=== PATIENT | male | born 1970 | race Caucasian/White ===

== ENCOUNTER 2016-09-15 14:52 | Emergency (ER) | payer OTHER ==
[~2016-09-15] VITALS: Ht 188 cm; Wt 96.0 kg
[2016-09-15] MEDS ORDERED: BACTRIM,SEPT1 TABLET PO (15:27)
[2016-09-15] MEDS ORDERED: LISINOPRIL20 MG PO (15:32)
[2016-09-15] MEDS ORDERED: OMEPRAZOLE40 M1 PO (15:32)
[2016-09-15 15:42] VITALS: BP 00/00
== END 2016-09-15 15:49 | disposition home or self-care (01) ==
LOC: EME 14:52
DX: S81.801A Unspecified open wound, right lower leg, initial encounter (principal); L03.115 Cellulitis of right lower limb; W26.8XXA Contact with other sharp object(s), not elsewhere classified, initial encounter; F17.200 Nicotine dependence, unspecified, uncomplicated
CPT/HCPCS: 99281; 99284

== ENCOUNTER 2017-01-30 17:02 | Emergency (ER) | payer OTHER ==
[~2017-01-30] VITALS: Ht 188 cm; Wt 107.0 kg
[~2017-01-30 17:02] MED LIST: BACTRIM,SEPT1 TABLET PO; LISINOPRIL20 MG PO; OMEPRAZOLE40 M1 PO
[2017-01-30] MEDS ORDERED: SKELAXIN800 MG PO (20:49)
[2017-01-30] MEDS ORDERED: NAPROXEN500 MG PO (20:49)
[2017-01-30 21:40] VITALS: BP 142/84
== END 2017-01-30 21:43 | disposition home or self-care (01) ==
LOC: EME 17:02 → RME 17:02
DX: M25.511 Pain in right shoulder (principal); I10 Essential (primary) hypertension; F17.200 Nicotine dependence, unspecified, uncomplicated
CPT/HCPCS: 73030; 93005; 99281; 99283

== ENCOUNTER → 2018-01-30 | Outpatient (CLI) | payer OTHER ==
[~2018-01-30] MED LIST changes: +NAPROXEN500 MG PO; +SKELAXIN800 MG PO
== END | disposition home or self-care (01) ==
LOC: CDC 16:15
DX: Z01.810 Encounter for preprocedural cardiovascular examination (principal); S46.219A Strain of muscle, fascia and tendon of other parts of biceps, unspecified arm, initial encounter; R94.31 Abnormal electrocardiogram [ECG] [EKG]
CPT/HCPCS: 93000